=== PATIENT | female | born 1940 | race Caucasian/White ===

== ENCOUNTER 2016-02-27 12:15 | Day surgery (SDC) | payer MEDICARE ==
[2016-02-27] MEDS ORDERED: HYDRALAZINE 20MG/ML VIAL IV ONE (14:00)
[2016-02-27] MEDS ORDERED: LIDOCAINE 2% MDV (20MG/ML) 20ML VIAL IV ONE (14:00)
[2016-02-27] MEDS ORDERED: FENTANYL PF 100MCG/2ML VIAL IV ONE (14:00)
[2016-02-27] MEDS ORDERED: PROPOFOL 10 MG/ML VIAL IV ONE (14:00)
--- NOTE | 2016-02-29 10:46 | Operative Note ---
DATE OF SURGERY: 02/27/2016. DICTATING LEATHER TOOLER: Juarez Mcdonnell D.O. dictating for Benedict Quintana D.O. PREOPERATIVE INDICATION: This is a 75-year-old female with a history abdominal pain, black stools, a history of colon polyps, and anemia. POSTOPERATIVE DIAGNOSES: 1. Mild reflux esophagitis, [place] classification grade A. Biopsies were obtained at the esophagus to rule out eosinophilic esophagitis. 2. Mild gastritis in the antrum of the stomach; biopsies were obtained for H. pylori. 3. Mild duodenitis; biopsies were obtained in the bulb and second portion to rule out celiac disease. 4. Moderate to severe sigmoid diverticulosis with stenosis and difficulty advancing the colonoscope. 5. Transverse colon polyp measuring 6.0 mm and sessile; removed with cold- snare and retrieved for pathology. 6. Normal terminal ileum. OPERATION: Esophagogastroduodenoscopy with biopsy and colonoscopy with polypectomy. ENDOSCOPIST: Benedict Quintana D.O. LEATHER TOOLER: Juarez Mcdonnell D.O. ANESTHESIA: Anesthesia was provided by the Anesthesia Department. COMPLICATIONS: None. QUALITY OF PREP: Good. PROCEDURE: The procedure was thoroughly explained to the patient including risks, benefits, and alternatives. The patient had an opportunity to have her questions answered and sign informed written consent. The patient was transported to the endoscopy suite and placed in the left lateral decubitus position. The procedure was begun with the introduction of a well-lubricated GIF-190 gastroscope with direct visualization. The laryngeal structures, including the vocal cords, appeared normal. The esophagus was easily intubated and thoroughly examined to the gastroesophageal junction. There was no evidence of strictures, varices, masses, or angiodysplasias. The gastroesophageal junction showed evidence of mild reflux esophagitis. The endoscope was advanced into the stomach, along the greater curvature, and into the antrum. Biopsies were taken from the antrum and body of the stomach to rule out H. pylori which showed evidence of mild gastritis. The endoscope was advanced into the duodenum, into the bulb, and the second portion of the duodenum which showed evidence of mild duodenitis. Biopsies were taken from the bulb and second portion of the duodenum to rule out celiac disease as a cause for her anemia. The endoscope was then withdrawn and retroflexed in the antrum to view the lesser curvature, fundus, and cardia which appeared unremarkable. The stomach was decompressed as the endoscope was withdrawn. Biopsies were taken from the proximal distal esophagus to rule out eosinophilic esophagitis. A digital rectal examination was performed with no abnormalities felt and good anal sphincter tone. A well-lubricated PCF-180 colonoscope was inserted into the rectum and advanced to the cecum under direct visualization. The sigmoid colon showed evidence of diverticulosis and severely stenotic disease with difficulty advancing the endoscope. The cecum was identified by the appendiceal orifice and ileocecal valve. The terminal ileum was intubated and appeared normal for several centimeters. The colon was again evaluated in detail as the colonoscope was withdrawn. There was evidence of a 6.0 mm sessile polyp in the transverse colon which was removed with cold-snare and retrieved for pathology. The remainder of the examination was unremarkable. Retroflexion was performed in the rectum with no abnormalities seen. The colonoscope was straightened as the rectum was decompressed and the colonoscope was withdrawn. The patient tolerated the procedure well and will be transferred to recovery in stable condition. Findings of the examination will be discussed with the patient in recovery. RECOMMENDATIONS: 1. Avoid nonsteroidal anti-inflammatory drugs and aspirin. 2. Proton pump inhibitor daily, 30 minutes before breakfast. 3. Await esophageal, gastric, and duodenal biopsies. 4. Await colon polyp pathology. 5. Repeat colonoscopy in five years. BENEDICT QUINTANA D.O. Date Time cc: Jose Valencia Job Number: [id number] MTDD
== END 2016-02-27 15:20 | disposition home or self-care (01) ==
LOC: HOP 12:15
PROVIDERS: ATTEND Internal Medicine Gastroenterology
DX: D12.3 Benign neoplasm of transverse colon (principal); K20.0 Eosinophilic esophagitis; K29.50 Unspecified chronic gastritis without bleeding; K29.80 Duodenitis without bleeding; K57.30 Diverticulosis of large intestine without perforation or abscess without bleeding; E03.9 Hypothyroidism, unspecified; I10 Essential (primary) hypertension
CPT/HCPCS: 45385; 43239; 00810; J3010

== ENCOUNTER 2017-04-22 16:30 | Emergency (ER) | payer MEDICARE ==
[2017-04-22] MEDS ORDERED: KETOROLAC 30 MG/ML VIAL IM ONE (16:58)
--- NOTE | 2017-04-22 16:58 | Emergency Department Record ---
History of Present Illness - General Chief complaint: Nausea, Vomiting, Diarrhea Stated complaint: NAUSEA,HEADACHE,DIZZINESS, Time Seen by Provider: 04/22/17 16:46 Source: Patient, Family Mode of Arrival: Ambulatory Limitations: No limitations - History of Present Illness Initial comments: The patient is here due to a ROME for 9 days. She fell backwards and hit the back of the head on steel pole 9 days ago. She was evaluated at [facility] and had a head and neck CT that was neg. The patient was doing better for a few days and then the symptoms of pain and nausea returned. She also felt like she was walking funny. Due to that problem she went back to [facility] last night and had another evaluation. On that visit they repeated her head CT and did lab work and told her she had a closed head injury. Today she talked with her family about the issues and they became concerned about her nausea and head pain and decided to come to the ER here at [facility]. She denies any new problems, issues, falls, fever, chills, or vomiting. MD complaint: Nausea, Other Onset/Timin -: Days(s) Radiation: None Severity: Moderate Severity scale (1-10): 9 Quality: Aching Consistency: Constant Improves with: None Worsens with: None Context: Other Associated Symptoms: Other - Related Data Home Medications Medication Instructions Recorded Confirmed Last Taken Atorvastatin Calcium 40 mg PO DAILY 04/22/17 04/22/17 Unknown Escitalopram Oxalate [Lexapro] 20 mg PO DAILY 04/22/17 04/22/17 Unknown Hydrocodone/Acetaminophen 10 mg PO Q6H 04/22/17 04/22/17 Unknown [Hydrocodone/Acetaminophen 10mg/325mg] Levothyroxine Sodium 75 mcg PO DAILY 04/22/17 04/22/17 Unknown Losartan Potassium [Losartan 50 mg PO DAILY 04/22/17 04/22/17 Unknown Potassium] Propranolol HCl 40 mg PO DAILY 04/22/17 04/22/17 Unknown Trazodone HCl 100 mg PO QHS 04/22/17 04/22/17 Unknown Allergies Allergy/AdvReac Type Severity Reaction Status Date / Time latex Allergy Mild RASH Verified 02/10/16 10:52 Travel Screening - Travel/Exposure Within Last 30 Days Have you traveled within the last 30 days?: No Review of Systems Constitutional: Denies: Chills, Fever Eyes: Denies: Eye discharge ENT: Denies: Congestion Respiratory: Denies: Cough, Dyspnea Past Medical History - SOCIAL HISTORY Smoking Status: Never smoker - RESPIRATORY Hx Respiratory Disorders: Yes Hx Tuberculosis: Yes (as a child) - CARDIOVASCULAR Hx Cardio Disorders: Yes Hx Hypertension: Yes - NEURO Hx Neuro Disorders: Yes Hx of Migraines: Yes - GI Hx GI Disorders: Yes Hx Abdominal Pain: Yes (periumbilical) Hx Rectal Bleeding: Yes (black stools) - Hx Genitourinary Disorders: Yes Hx Bladder Problem: Yes (frequency) - ENDOCRINE Hx Endocrine Disorders: Yes Hx Thyroid Disease: Yes - MUSCULOSKELETAL Hx Musculoskeletal Disorders: Yes Hx Arthritis: Yes (DDD neck) - PSYCH Hx Psych Problems: Yes Hx Anxiety: Yes Hx Depression: Yes - HEMATOLOGY/ONCOLOGY Hx Hematology/Oncology Disorders: No Family Medical History Any Significant Family History?: Yes Hx Diabetes: Mother, Brother/Sister Hx Heart Disease: Mother Hx HTN: Mother Physical Exam - General General Appearance: Alert, Oriented x3, Cooperative, No acute distress - Head Head exam: Atraumatic, Normocephalic, Normal inspection - Eye Eye exam: Normal appearance, PERRL - ENT Throat exam: Normal inspection. negative: Tonsillar erythema, Tonsillar exudate - Neck Neck exam: Normal inspection, Full ROM. negative: Tenderness - Respiratory Respiratory exam: Normal lung sounds bilaterally. negative: Respiratory distress - Cardiovascular Cardiovascular Exam: Regular rate, Normal rhythm, Normal heart sounds - GI/Abdominal GI/Abdominal exam: Soft, Normal bowel sounds. negative: Tenderness - Extremities Extremities exam: Normal inspection, Full ROM, Normal capillary refill. negative: Tenderness - Back Back exam: Reports: Normal inspection - Neurological Neurological exam: Alert, Normal gait, Oriented X3, Other (Neg Drift and [place]. Finger to nose exam normal.). negative: Abnormal gait, Altered, Motor sensory deficit - Psychiatric Psychiatric exam: negative: Anxious Course Vital Signs 04/22/17 16:35 Temperature 97.8 F Pulse Rate 77 Respiratory 18 Rate Blood Pressure 172/101 Pulse Ox 98 - Reevaluation(s) Reevaluation #1: I did review extensively the two [facility] workups. The patient had a neg Head and Neck CT on 04/13/17 and a repeat neg Head CT last night on 04/21/17. She also had a full lab evaluation last night at [facility] and everything was basically normal. Due to that fact along with the patient clearly being neurologically intact I do not feel we can add anything to her evaluation. It does appear she has a closed head injury and she will need to F/U with her PCP tomorrow as planned. 04/22/17 17:03 Reevaluation #2: The patient still is complaining of a ROME but appears very comfortable. She is smiling and cracking jokes with me and appears VERY nontoxic and stable. She is up walking normally with no ataxia. I did discuss the case with Dr. Flores and he agrees with the plan to discharge home and F/U in the office tomorrow. The patient is feeling better and is ready for home. 04/22/17 17:57 Disposition Disposition: Discharge Clinical Impression: Post concussion syndrome Disposition: Home, Self-Care Condition: (2) Stable Instructions: Post Concussion Syndrome (ED) Additional Instructions: Please continue your regular medicines and see your family doctor tomorrow for further evaluation. Return to the ER for any new or worsening symptoms. Forms: Patient Portal Access Time of Disposition: 17:59 Quality - Quality Measures Quality Measures: N/A - Blood Pressure Screening View Details: Yes Does Patient Have Any of the Following: Active Dx of HTN Blood Pressure Classification: Hypertensive Reading Systolic Measurement: 204 Diastolic Measurement: 91 Screening for High Blood Pressure: Patient Exclusion, Hx of HTN [G9744]
[2017-04-22] MEDS ORDERED: ONDANSETRON 4 MG ODT TABLET SL ONE (17:29)
[2017-04-22] MEDS ORDERED: HYDROMORPHONE HCL 2 MG/ML VIAL IM ONE (17:46)
== END 2017-04-22 18:31 | disposition home or self-care (01) ==
LOC: ER 16:30
DX: F07.81 Postconcussional syndrome (principal); G44.319 Acute post-traumatic headache, not intractable; R12 Heartburn; R19.7 Diarrhea, unspecified; I10 Essential (primary) hypertension
CPT/HCPCS: 99283; 96372; 99284; J1885; J1170